=== PATIENT | male | born 1980 | race Caucasian/White ===

== ENCOUNTER 2016-12-04 10:22 | Emergency (ER) | payer MEDICAID ==
[~2016-12-04] VITALS: Ht 177.8 cm; Wt 72.6 kg
[~2016-12-04 10:22] MED LIST: COZAAR25 MG PO; VISTARIL25 M1 PO
--- NOTE | 2016-12-04 11:00 | Emergency Room Report ---
History of Present Illness Time Seen by MD Atkinson Presenting Problem in Triage Pt arrived:Walked Presenting Problem:C/O "BURNING" PAIN R/T A BURN ON R HAND/THUMB AREA. PT STATES BURNED HIS HAND ON 11/28/16 ON A HOT SKILLET. 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 N Clinical Suspician of Infection? N Mental Status: 1 - Regular (Normal Baseline) Sepsis Risk:Low Sepsis Risk Have you (or family members/close friends) recently traveled outside the [place]? N If Yes, where/when: Have you had exposure to infectious disease within the past month? N TB? Other? Specify: Comment The patient burned his LEFT hand on a hot skillet 6 days ago. His work sent him home the past couple of days because he is supposed to wear gloves at work and cannot do so due to the pain. His last tetanus immunization was 3 years ago. No fever or drainage. ALLERGIES Coded Allergies: No Known Allergies (12/04/16) Home Medications Active Scripts Losartan Potassium (Cozaar) 25 MG PO DAILY #30 TAB Ref 1 Prov: 01/17/15 History Medical History General CAD? No Angina: No [place]: No Hypertension? Yes Hyperlipidemia? No CHF? No DVT? No PE? No COPD? No Asthma? No Anemia? No GERD? No Gastric ulcers? No GI Bleed? No Hernia? No Thyroid Problems? No Hypothyroidism? No CVA? No Seizures? No Diabetes? No Renal Insuffiency? No End Stage Renal Disease? No UTI? No Stones? No GB Disease: No Nephritic Syndrome? No Asplenia? No Hepatitis? No Sickle Cell Disease? No Arthritis? No Migraines? No Cataracts? No Glaucoma? No MRSA? No HIV? No TB? No Anxiety? No Depression? No Cancer? No More? No Immunization Hx DT/Tetanus 1-4 Years Ago Surgical Hx Previous Surgery?N Social History Smoking Hx Smoker: Current Every Day Smoker Tobacco: Yes Type Cigarettes Packs/day < 1 Pack Alcohol Alcohol: Yes Review of Systems All Other Systems Reviewed and Negative Constitutional denies fever Skin see HPI Physical Exam Vital Signs Vital Signs Date Time Temp Pulse Resp B/P Pulse O2 O2 Flow FiO2 Ox Delivery Rate 12/04 1027 98.5 88 18 170/92 100 General Appearance normal appearance Respiratory Status No: respiratory distress. Cardiovascular regular rate/rhythm, normal peripheral pulses Extremities less than 1 percent body surface area burn on the dorsal surface of his LEFT hand over the area of the proximal phalanx and metacarpal of his thumb. Granulation tissue is present. No signs of infection. Healing well and appears as it should at this stage of healing. Neurovascular intact. Neurologic alert, no motor/sensory deficits Medical Decision Making LABS/Meds/Orders Pt receiving controlled substance in ED? No Departure Departure Disposition DC Home or Self Care(routine) Clinical Impression Primary Impression: Burn of hand Qualifiers: Encounter type: initial encounter Laterality: left Burn degree: second degree Qualified Code: T23.202A - Burn of second degree of left hand, unspecified site, initial encounter Condition STABLE Referrals Shaji DEVI,Flash Pedersen (Family) Patient Instructions DI for Laure[facility] Additional Instructions Clean the burn with soap and water daily and apply Neosporin ointment. Bandage for protection when needed. Ibuprofen for pain. Off work until Friday12/09/16. May return to work on 12/09/16. ED Critical Care Critical Care No at 1107
[2016-12-04 11:12] VITALS: BP 137/69
== END 2016-12-04 11:13 | disposition home or self-care (01) ==
LOC: ER 10:22
DX: T23.202A Burn of second degree of left hand, unspecified site, initial encounter (principal); I10 Essential (primary) hypertension; Z72.0 Tobacco use; X16.XXXA Contact with hot heating appliances, radiators and pipes, initial encounter; Y92.69 Other specified industrial and construction area as the place of occurrence of the external cause; Y99.0 Civilian activity done for income or pay

== ENCOUNTER → 2017-10-10 | Outpatient (CLI) | payer MEDICAID ==
[2017-10-10 16:23] LABS: BUN 17 mg/dL (7-18)
[2017-10-10 16:29] LABS: GFR (ESTIMATED) 96 ML/MIN (>60)
== END ==
LOC: LAB 15:26
PROVIDERS: Nurse Practitioner Family
DX: F41.9 Anxiety disorder, unspecified (principal)